=== PATIENT | female | born 1990 | race African-American/Black ===

== ENCOUNTER 2017-08-01 19:30 | Inpatient (IN) | payer MEDICAID ==
[2017-08-01] VITALS (14 sets, daily range): BP systolic 113–147; BP diastolic 65–82; PULSE 66–76; RESP 15–18; TEMP 97.5–98; O2SAT 100
[~2017-08-01 19:30] MED LIST: CYCL-36 PO; DIPHTH/TETANUS/ACEL PERTUSSIS (BOOSTER) 0.5 ML VIAL/PFS IM ONE; FE C PO; IBUP600T26 PO; MEASLES, MUMPS, RUBELLA VACCINE 0.5 ML VIAL SQ ONE; METR500T10 PO; SULF1TAB58 PO; [UNRECOGNIZED DRUG - OTHER] PO
[2017-08-01] MEDS ORDERED: LACTATED RINGER'S 1000 ML INJ 1,000 ML IV PRN (19:57)
[2017-08-01] MEDS ORDERED: LACTATED RINGER'S 1000 ML INJ 1,000 ML IV SCH (19:57)
--- NOTE | 2017-08-01 19:57 | HHI.HP ---
History & Physical H&P HPI HPI Chief Complaint Contractions Date Seen: Aug 01, 2017 Time Seen: 19:53 Travel History International Travel<30 Days: No Contact w/Intl Traveler<30Days: No Known Affected Area: No History of Present Illness HPI 27-year-old 4 para 3 at 40 weeks gestation who started having contractions about 10:00 last night which have increased a day. She also notes some bloody discharge. No leakage of fluid. She reports good movement. History (Limited) History Past Medical History Medical History: Denies Significant Hx Obstetric History Obstetric History 3 prior vaginal deliveries care with [facility]. She has had no visits for the last month and no GBS. Past Surgical History Surgical History: No Previous Surgery Family History Family History: Negative Social History Alcohol Use: No Tobacco Use: No Substance Abuse: No Allergies-Medications Allergies-Medications (Allergen,Severity, Reaction): Coded Allergies: aspirin (Unverified Allergy, Intermediate, 06/10/17) Home Meds Active Scripts Metronidazole (Metronidazole) 500 Mg Tab, 500 MG PO BID for Infection, #14 TAB 0 Refills Prov:Desire Santana 06/15/17 Multi-Vit/Iron-Folic Acid (Active Fe) 75-1.25 mg Tab, 1 TAB PO BID for 30 Days, #60 TAB 2 Refills Prov:Kasey Melendez 06/10/17 Sulfamethoxazole/Trimethoprim (Sulfamethoxazole-Tmp Ss Tablet) 400 Mg-80 Mg Tablet, 1 TAB PO BID for 7 Days, #14 TAB Prov:Kasey Melendez 06/10/17 Pnv W-O Iron/FA/Calcium/B6/B12 (Folbecal Tablet) 1 Mg-200 Mg-75 Mg-12 Mcg Tbmp.24hr, 1 TAB PO BID for 30 Days, #30 TAB 4 Refills Prov:Kasey Melendez 06/10/17 Cyclobenzaprine Hcl (Flexeril) 10 Mg Tab, 10 MG PO TID for Pain, #15 TAB Prov:Joana Ng MD 06/04/16 Ibuprofen (Ibuprofen) 600 Mg Tab, 600 MG PO Q8H Y for PAIN SCALE 1 TO 10, #20 TAB Prov:Joana Ng MD 8/25/16 ROS Review of Systems Except as stated in HPI: all other systems reviewed are Neg Physical Exam Physical Exam Narrative GENERAL: Well-nourished, well-developed patient. SKIN: Warm and dry. HEAD: Normocephalic and atraumatic. EYES: No scleral icterus. No injection or drainage. ENT: No nasal drainage noted. Mucous membranes pink. Airway patent. NECK: Supple, trachea midline. No JVD. CARDIOVASCULAR: Regular rate and rhythm without murmurs, gallops, or rubs. RESPIRATORY: Breath sounds equal bilaterally. No accessory muscle use. ABDOMEN/GI: Abdomen soft, non-tender, bowel sounds present, no rebound, no guarding Gravid to [-] weeks size Fundal Height: [-] GENITOURINARY: External Genitalia: intact and normal in appearance BUS glands: [-Negative] Cervix: [-] Dilatation: [3-4-] Effacement: [-80] Station: [-2-] Presentation: [Vertex-] Membranes: [intact ] Uterine Contractions: [Every 5-7-] FHT's: Category: [1-] Baseline: [-] Reactive: [-] Variability: [-] Decels: [-] EXTREMITIES: No cyanosis or edema. BACK: Nontender without obvious deformity. No CVA tenderness. NEUROLOGICAL: Awake and alert. Motor and sensory grossly within normal limits. Five out of 5 muscle strength in all muscle groups. Normal speech. Data Data MDM MDM Medical Record Reviewed: Yes Narrative Course / MDM Assessment: 40 week multiparous female in early labor, unknown GBS status Plan: Admit for labor management. Rapid GBS Guillermo Madera MD Aug 01, 2017 19:56 Guillermo Madera MD Aug 01, 2017 19:57
[2017-08-01] MEDS ORDERED: LIDOCAINE HCL 1% 50 ML VIAL INFIL PRN (20:00)
[2017-08-01] MEDS ORDERED: SODIUM CHLORID 0.9% 500 ML INJ 500 ML IV PRN (20:00)
[2017-08-01] MEDS ORDERED: OXYTOCIN 30 UNITS-500ML PREMIX 500 ML IV ONE (20:00)
[2017-08-01] MEDS ORDERED: LIDOCAINE HCL 1% 50 ML VIAL I-DERMAL PRN (20:00)
[2017-08-01] MEDS ORDERED: CITRIC ACID-SODIUM CITRATE LIQ 30 ML UDC PO SCH (20:00)
[2017-08-01] MEDS ORDERED: MINERAL OIL 10 ML VIAL TOPICAL PRN (20:00)
[2017-08-01] MEDS ORDERED: SODIUM CHLOR 0.9% 1000 ML INJ 1,000 ML IV PRN (20:17)
[2017-08-01 20:26] LABS: AUTOMATED NEUTROPHIL # 4.8 TH/MM3 (1.8-7.7); BASOPHIL % 0.4 % (0.0-2.0); EOSINOPHIL # 0.1 TH/MM3 (0-0.4); EOSINOPHIL % 0.7 % (0.0-4.0); HEMATOCRIT 29.1 % (35.0-46.0); HEMO FLAGS DIFF FINAL; LYMPHOCYTE # 2.3 TH/MM3 (1.0-4.8); MEAN CELL VOLUME 73.7 FL (80.0-100.0); MEAN CORPUSCULAR HEMOGLOBIN 22.9 PG (27.0-34.0); MONO % 7.3 % (0.0-8.0); NEUT % 61.6 % (16.0-70.0); PLATELET COUNT 200 TH/MM3 (150-450); RED BLOOD COUNT 3.94 MIL/MM3 (4.00-5.30); RED CELL DISTRIBUTION WIDTH 17.2 % (11.6-17.2); WHITE BLOOD COUNT 7.8 TH/MM3 (4.0-11.0)
[2017-08-01] MEDS ORDERED: fentaNYL 2MCG-BUPIV 0.125% INJ 100 ML ONE (20:31)
[2017-08-01] MEDS ORDERED: AMMONIA AROMATIC INHALANT 0.33 ML ONE (20:42)
--- NOTE | 2017-08-01 21:33 | PD.OB.DELI ---
Weeks gestation: 40 Gest age assessed date: Aug 01, 2017 Gest age assessed time: 21:31 Pt started active labor?: Yes Active labor start date: Aug 01, 2017 Active labor start time: 19:00 Medical induction of labor?: No Artificial rupture of membrane: Yes Artificial ROM date: Aug 01, 2017 Artifical ROM time: 21:15 Anesthesia: Epidural Episiotomy: None Vaginal Delivery: Normal Presentation: Occiput anterior Nuchal Cord: None, x1 Delayed cord clamping (45 sec): Yes Infant: Male Delivery date: Aug 01, 2017 Delivery time: 21:20 One Minute : 9 Five Minute : 9 Placenta: Spontaneous delivery, Intact, 3 vessel cord Laceration: No lacerations Estimated blood loss: 150 Additional Information The patient progressed rapidly through active labor. She pushed with 1 contraction and delivered the OA vertex over an intact perineum. There was no delay for the shoulders which were delivered by maternal effort. The remainder the infant followed easily and the was placed on the maternal abdomen where delayed cord clamping was accomplished. The placenta passed spontaneously. It was grossly normal and apparently intact. Hemostasis was achieved with massage and IV Pitocin solution. Guillermo Madera MD Aug 01, 2017 21:33
[2017-08-01] MEDS ORDERED: ACETAMINOPHEN 325 MG TAB PO PRN (21:45)
[2017-08-01] MEDS ORDERED: ZOLPIDEM TARTRATE 5 MG TAB PO PRN (21:45)
[2017-08-01] MEDS ORDERED: SODIUM CHLORIDE 0.9% FLUSH 10 ML FLUSH IV FLUSH PRN (21:45)
[2017-08-01] MEDS ORDERED: OXYTOCIN 30 UNITS-500ML PREMIX 500 ML IV SCH (21:45)
[2017-08-01] MEDS ORDERED: DOCUSATE SODIUM 50 MG/SENNA 8.6 MG TAB PO PRN (21:45)
[2017-08-01] MEDS ORDERED: ALUMINUM/MAGNESIUM/SIMETH 30 ML CUP PO PRN (21:45)
[2017-08-01] MEDS ORDERED: ONDANSETRON ODT 4 MG TAB PO PRN (21:45)
[2017-08-01] MEDS ORDERED: BENZOCAINE 20% TOPICAL SPRAY 60 ML CAN TOPICAL PRN (21:45)
[2017-08-01] MEDS ORDERED: WITCH HAZEL 50%/GLYCERIN 12.5% 40 PAD JAR TOPICAL PRN (21:45)
[2017-08-01] MEDS ORDERED: DO NOT ADMINISTER ANTICOAGULANTS PRN (22:15)
[2017-08-01] MEDS ORDERED: fentaNYL 2MCG-BUPIV 0.125% 100 ML EPIDURAL SCH (22:15)
[2017-08-01] MEDS ORDERED: ePHEDrine/NS 25 MG/5 ML SYR IV PUSH PRN (22:15)
[2017-08-01] MEDS ORDERED: NO SYSTEM NARCOTICS PRN (22:15)
[2017-08-01] MEDS: oxyCODONE/ACETAMINOPHEN 5 MG/325 MG TAB PO PRN (23:17)
[2017-08-01 23:48] LABS: RUBELLA IGG ANTIBODY 22.3 IU/mL (10.0-500.0); RUBELLA STATUS IMMUNE (IMMUNE)
[2017-08-02] VITALS: BP 141/76; PULSE 62
[2017-08-02] LABS: BACTERIA, URINE RARE /hpf; BLOOD, URINE NEG (NEG); CALCIUM OXALATE CRYSTALS,URINE FEW /hpf; COMMENT (UR) CULTURE INDICATED; CULTURE IF INDICATED CULTURE INDICATED; GLUCOSE,URINE NEG (NEG); HYALINE CAST, URINE 1 /lpf (RARE); KETONE, URINE NEG (NEG); MUCUS URINE FEW /lpf (OCC); NITRITE,URINE NEG (NEG); SQUAMOUS EPITHELIAL CELL URINE 4 /hpf (0-5); URINE COLOR YELLOW (YELLW/STRAW)
[2017-08-02] MEDS: oxyCODONE/ACETAMINOPHEN 5 MG/325 MG TAB PO PRN ×4 (05:03→23:47)
[2017-08-02] MEDS ORDERED: SODIUM CHLORIDE 0.9% FLUSH 10 ML FLUSH IV FLUSH SCH (09:00)
--- NOTE | 2017-08-02 11:31 | HHI.OB ---
Subjective Remarks 27 year old female s/p at 40 wks gestation, PPD 1. AFVSS. Patient reports she is feeling well. Bleeding is decreasing and pain is well- controlled. She is breast feeding and bonding well with baby. Ambulating without difficulties. She is tolerating a diet without nausea or vomiting. She has not had a bowel movement. She has passed gas. Denies chest pain, dysuria, shortness of breath, or calf pain. Objective Vitals/I&O Vital Signs Date Time Temp Pulse Resp B/P (MAP) Pulse Ox O2 Delivery O2 Flow Rate FiO2 08/02/17 00:00 62 141/76 (97) 08/01/17 22:01 70 113/81 (92) 08/01/17 21:54 97.5 15 08/01/17 21:31 118/82 (94) 08/01/17 21:11 68 134/65 (88) 08/01/17 21:06 70 134/68 (90) 08/01/17 21:01 66 124/67 (86) 08/01/17 20:56 66 08/01/17 20:51 67 08/01/17 20:51 147/82 (103) 08/01/17 20:46 76 131/81 (98) 08/01/17 20:42 68 133/67 (89) 08/01/17 20:40 73 08/01/17 20:40 100 08/01/17 20:19 98.0 18 08/01/17 20:17 67 129/73 (91) 08/01/17 20:00 18 Objective Remarks GENERAL: Well-nourished, well-developed patient. CARDIOVASCULAR: Regular rate and rhythm without murmurs, gallops, or rubs. RESPIRATORY: Breath sounds equal bilaterally. No accessory muscle use. ABDOMEN/GI: Abdomen soft, non-tender. Fundus: Firm, non-tender at umbilicus. GENITOURINARY: Light to moderate bleeding. EXTREMITIES: No cyanosis or edema, non-tender, without signs of DVT. Medications and IVs Current Medications Medications (Trade) Dose Ordered Sig/Beckie Route Start Time Stop Time Status Last Admin (NS Flush) 2 ml BID IV FLUSH 08/02/17 09:00 (NS Flush) 2 ml UNSCH PRN IV FLUSH 08/01/17 21:45 (Tylenol) 650 mg Q4H PRN PO 08/01/17 21:45 (Percocet 5-325 Mg) 1 tab Q4H PRN PO 08/01/17 21:45 08/02/17 05:03 (Percocet 5-325 Mg) 2 tab Q4H PRN PO 08/01/17 21:45 (Americaine 20% Top Spr) 1 spray Q4H PRN TOPICAL 08/01/17 21:45 08/02/17 00:19 (Tucks Pads) 1 applic QID PRN TOPICAL 08/01/17 21:45 08/02/17 00:19 (Sugar-Colace) 2 tab Q12H PRN PO 08/01/17 21:45 (Ambien) 5 mg HS PRN PO 08/01/17 21:45 08/02/17 00:19 (Mag-Al Plus Susp Liq) 15 ml Q8H PRN PO 08/01/17 21:45 (Zofran Odt) 4 mg Q6H PRN PO 08/01/17 21:45 Miscellaneous Information No systemic narcotics to be given except... UNSCH PRN .XX 08/01/17 22:15 08/02/17 22:14 Miscellaneous Information DO NOT ADMINISTER ANY ANTICOAGUL... UNSCH PRN .XX 08/01/17 22:15 08/02/17 22:14 Fentanyl/ Bupivacaine HCl 100 ml @ 0 mls/hr TITRATE EPIDURAL 08/01/17 22:15 08/01/17 22:20 (ePHEDrine/NS 25 MG/5 ML SYR) 10 mg UNSCH PRN IV PUSH 08/01/17 22:15 08/02/17 22:14 Assessment/Plan Assessment and Plan 27 yo female s/p , PPD 1 - AFVSS - Continue routine care - Motrin PRN pain - Encourage OOB - Pelvic rest x 6 wks - Contraception: Progestin only OCP - Anticipate D/C 08/03 Jeff aBrrientos MD R2 Aug 02, 2017 11:31
[2017-08-02] MEDS ORDERED: NORE0.3513 PO (11:33)
[2017-08-02] MEDS ORDERED: ACET1TAB86 PO (11:33)
[2017-08-02 19:03] LABS: CHLAMYDIA PCR NOT DETECTED (NOT DETECT); NEISSERIA PCR NOT DETECTED (NOT DETECT)
[2017-08-03 08:15] VITALS: BP 123/62; PULSE 65; RESP 18; TEMP 97.7
--- NOTE | 2017-08-03 08:56 | HHI.DCPOC ---
Discharge Care Plan Diagnosis: (1) Normal vaginal delivery Report Symptoms to Your Doctor -Temperature above 100.5 degrees -Redness, of incision or excessive or foul smelling drainage -Unusual pain or calf pain -Increased vaginal bleeding -Painful or difficulty urinating -Feelings of extreme sadness or anxiety after 2 weeks Goals to Promote Your Health * To prevent worsening of your condition and complications * To maintain your health at the optimal level Directions to Meet Your Goals Take your medications as prescribed Follow your dietary instruction Follow activity as directed Ensure plenty of rest for recovery Drink fluids for hydration Keep your appointments as scheduled Take your immunizations and boosters as scheduled If your symptoms worsen call your PCP, if no PCP go to Urgent Care Center or Emergency Room Smoking is Dangerous to Your Health. Avoid second hand smoke Call the 24-hour crisis hotline for domestic abuse at Zina Levin MD R1 Aug 03, 2017 08:56
--- NOTE | 2017-08-03 09:20 | HHI.OB ---
Subjective Remarks 27 year old female s/p at 40 wks gestation, PPD 2. AFVSS. Patient reports she is feeling well. Bleeding is decreasing and pain is well- controlled. She is breast and formula feeding and bonding well with baby. Ambulating without difficulties. She is tolerating a diet without nausea or vomiting. She has had a bowel movement. She has passed gas. Denies chest pain, dysuria, shortness of breath, or calf pain. Objective Objective Remarks GENERAL: Well-nourished, well-developed patient. CARDIOVASCULAR: Regular rate and rhythm without murmurs, gallops, or rubs. RESPIRATORY: Breath sounds equal bilaterally. No accessory muscle use. ABDOMEN/GI: Abdomen soft, non-tender. Fundus: Firm, non-tender at umbilicus. GENITOURINARY: Light to moderate bleeding. EXTREMITIES: No cyanosis or edema, non-tender, without signs of DVT. Medications and IVs Current Medications Medications (Trade) Dose Ordered Sig/Beckie Route Start Time Stop Time Status Last Admin (NS Flush) 2 ml BID IV FLUSH 08/02/17 09:00 (NS Flush) 2 ml UNSCH PRN IV FLUSH 08/01/17 21:45 (Tylenol) 650 mg Q4H PRN PO 08/01/17 21:45 (Percocet 5-325 Mg) 1 tab Q4H PRN PO 08/01/17 21:45 08/02/17 05:03 (Percocet 5-325 Mg) 2 tab Q4H PRN PO 08/01/17 21:45 08/02/17 23:47 (Americaine 20% Top Spr) 1 spray Q4H PRN TOPICAL 08/01/17 21:45 08/02/17 00:19 (Tucks Pads) 1 applic QID PRN TOPICAL 08/01/17 21:45 08/02/17 00:19 (Sugar-Colace) 2 tab Q12H PRN PO 08/01/17 21:45 08/02/17 11:47 (Ambien) 5 mg HS PRN PO 08/01/17 21:45 08/02/17 00:19 (Mag-Al Plus Susp Liq) 15 ml Q8H PRN PO 08/01/17 21:45 (Zofran Odt) 4 mg Q6H PRN PO 08/01/17 21:45 Fentanyl/ Bupivacaine HCl 100 ml @ 0 mls/hr TITRATE EPIDURAL 08/01/17 22:15 08/01/17 22:20 Assessment/Plan Assessment and Plan 27 yo female s/p , PPD 1 - AFVSS. Single high SBP of 141 at midnight, no other elevated BP readings - Continue routine care - Motrin PRN pain - Encourage OOB - Pelvic rest x 6 wks - Contraception: Progestin only OCP - Home today Jeff Barrientos MD R2 Aug 03, 2017 09:20
== END 2017-08-03 12:48 | disposition home or self-care (01) | DRG 775 ==
LOC: HOBED 19:30 → H2EB 20:13 → H1EA 23:21
PROVIDERS: ADMIT Obstetrics & Gynecology; ATTEND Obstetrics & Gynecology
PROC: 10E0XZZ Delivery of Products of Conception, External Approach (ICD-10-PCS; principal; 2017-08-01)
PROC: 00HU33Z Insertion of Infusion Device into Spinal Canal, Percutaneous Approach (ICD-10-PCS; 2017-08-01)
PROC: 3E0R3BZ Introduction of Anesthetic Agent into Spinal Canal, Percutaneous Approach (ICD-10-PCS; 2017-08-01)
DX: O80 Encounter for full-term uncomplicated delivery (principal); Z37.0 Single live birth; Z3A.40 40 weeks gestation of pregnancy
CPT/HCPCS: 80074; 80307; 81001; 85025; 86592; 86703; 86762; 86900; 86901; 87081; 87086; 87150; 87491; 87591; G0481; J2590; J7120